=== PATIENT | male | born 1975 | race Caucasian/White ===

== ENCOUNTER 2017-07-21 23:02 | Emergency (ER) | payer MEDICAID ==
--- NOTE | 2017-07-21 23:29 | Emergency Department Record ---
History of Present Illness - General Chief Complaint: Neck Injury/Pain Stated Complaint: NECK INJURY Time Seen by Provider: 07/21/17 23:17 Source: Patient, Family Mode of Arrival: Ambulatory Limitations: No limitations - History of Present Illness Initial Comments: 41 yo male presents after injuring his neck at 2pm today. He states he did a back flip from standing and landed on his head and neck. He was initially dazed for a few minutes. He states he could not move his arms and legs initially. Gradually the movement and sensation in the legs returned. He states the numbness, weakness and pain in his right arm remains. No confusion. No AMS. He states he remained home since 2pm because the symptoms were getting better. The right arm remaining weak with altered feeling and mild altered sensation of the left arm concerned him. No prior neck surgery. He reports he has a herniated disc from age 22 from [place]. Complaint: Neck injury -: Hour(s) (9) Place: Home Radiation: Left upper extremity, Right upper extremity Severity: Moderate Quality: Aching Consistency: Constant Improves With: None Worsens With: Movement of extremity, Movement of neck Context: Other (Doing a back flip) Associated Symptoms: Difficulty swallowing, Numbness, Weakness Treatments Prior to Arrival: None - Related Data Home Medications Medication Instructions Recorded Confirmed Last Taken No Home Med [NO HOME MEDS] 07/21/17 07/21/17 Unknown Allergies Allergy/AdvReac Type Severity Reaction Status Date / Time No Known Drug Allergies Allergy Verified 07/21/17 23:17 Review of Systems Constitutional: Denies: Chills, Fever, Malaise, Weakness Eyes: Denies: Eye discharge ENT: Denies: Congestion, Throat pain Respiratory: Denies: Cough Cardiovascular: Denies: Chest pain, Syncope Endocrine: Denies: Fatigue Gastrointestinal: Denies: Abdominal pain, Diarrhea, Nausea, Vomiting Genitourinary: Denies: Dysuria, Frequency Musculoskeletal: Reports: Arthralgia, Myalgia Skin: Denies: Bruising, Change in color, Rash Neurological: Reports: Headache, Numbness, Tingling, Weakness. Denies: Abnormal gait, Confusion, Tremors, Vertigo Psychiatric: Denies: Anxiety Hematological/Lymphatic: Denies: Easy bleeding, Easy bruising, Swollen glands Physical Exam - General General Appearance: Alert, Oriented x3, Cooperative, No acute distress Limitations: No limitations - Head Head exam: Atraumatic, Normocephalic, Normal inspection - Eye Eye exam: Normal appearance, PERRL. negative: Conjunctival injection, Scleral icterus - ENT ENT exam: Normal exam, Mucous membranes moist Ear exam: Normal external inspection Nasal Exam: Normal inspection Mouth exam: Normal external inspection - Neck Neck exam: Normal inspection, Tenderness. negative: Full ROM - Respiratory Respiratory exam: Normal lung sounds bilaterally. negative: Respiratory distress - Cardiovascular Cardiovascular Exam: Regular rate, Normal rhythm, Normal heart sounds Peripheral Pulses: 2+: Radial (R), Radial (L) - GI/Abdominal GI/Abdominal exam: Soft - Rectal Rectal exam: Deferred - exam: Deferred - Extremities Extremities exam: Normal inspection, Normal capillary refill. negative: Full ROM Image of Full Body: 1 - The patient can lift the arm off the bed approximately 30 degrees, he states it limits due to weakness more that pain, Jewel Hole Driller is 4/5, Biceps 3/5, subjective sensation decreased but present 2 - fixed income trading vice president 5/5, biceps 5/5, tricpes 5/5, sensation intact 3 - sensation intact, patellar reflexes intact =2, gross motor strenght intact , no foot drop, dorsi flexion and plantar flexion intact bilaterally - Back Back exam: Reports: Normal inspection, Full ROM - Neurological Neurological exam: Alert, CN II-XII intact, Motor sensory deficit (see above image with upper and lower extremity examination), Oriented X3. negative: Abnormal gait - Psychiatric Psychiatric exam: Normal affect, Normal mood - Skin Skin exam: Dry, Intact, Normal color, Warm Course Vital Signs 07/21/17 23:12 Temperature 97.9 F Pulse Rate [ 75 Pulse Ox Probe] Respiratory 16 Rate Blood Pressure 135/69 [Left Arm] Pulse Ox 99 - Reevaluation(s) Reevaluation #1: 07/21/17 23:35 C-collar placed and CT scans ordered 07/22/17 00:[address] of the cervical spine was negative for acute injury. Degenerative changes throughout the spine most noted at C5/6 I recommend transfer to [facility] for evaluation for MRI given the right arm is still weak with altered sensation as well as the other resolved symptoms [facility] was called I strongly recommend transfer tonight. The patient agrees. He refused EMS He is stable for private car in a collar I SANJAY Nayak of the ED He accepts the patient for transfer 07/22/17 00:53 The questions were answered The patient understands the need for collar until evaluation at [facility] He was given a copy of the CT Disposition Disposition: Transfer Clinical Impression: Cervical radiculopathy Disposition: Acute Care Hospital Transfer Transfer To: [facility] Reason For Transfer: RUE weakness, MRI Accepting Physician: Malini Time Discussed w/Accepting Physician: 00:50 Condition: (2) Stable Additional Instructions: Go directly to the [facility] ED for evaluation Keep the collar on until evaluated Do not take the collar off as this could cause further injury Forms: Patient Portal Access Time of Disposition: 00:50 Quality - Quality Measures Quality Measures: N/A - Blood Pressure Screening Does Patient Have Any of the Following: No Blood Pressure Classification: Pre-Hypertensive BP Reading Systolic Measurement: 135 Diastolic Measurement: 69 Screening for High Blood Pressure: < Pre-Hypertensive BP, F/U Documented > [ G8950] Pre-Hypertensive Follow-up Interventions: Referral to alternative/primary care provider.
--- NOTE | 2017-07-23 08:32 | CT SCAN REPORT ---
EXAM: CT SCAN OF THE BRAIN WITHOUT CONTRAST HISTORY: INJURED THE HEAD AND NECK DURING A BACK FLIP. RIGHT ARM WEAKNESS. TECHNIQUE: Standard CT imaging of the brain was performed without contrast. Comparison: None. Encounter: Initial. FINDINGS: The ventricles and cortical sulci are normal. There is a prominent cisterna magna. There is no mass, mass effect, intracranial hemorrhage, or visible acute infarct. The skull is intact. The orbits, sinuses, and mastoids are normal. IMPRESSION: NO ACUTE INTRACRANIAL ABNORMALITY. JOB NUMBER: [id number] [facility]
--- NOTE | 2017-07-23 08:56 | CT SCAN REPORT ---
EXAM: CT SCAN OF THE CERVICAL SPINE WITHOUT CONTRAST HISTORY: PATIENT INJURED THE NECK WHILE PERFORMING A BACK FLIP. LOWER NECK PAIN WITH RIGHT ARM NUMBNESS. TECHNIQUE: Standard CT imaging of the cervical spine was performed in the axial plane without contrast. Additional coronal and sagittal reformatted images were also performed. Comparison: None. FINDINGS: There is mild straightening of the cervical lordosis. There is no acute fracture, subluxation, or prevertebral soft tissue swelling. Mild disk space narrowing and end plate degenerative changes are present at the C5-C6 level. Very slight end plate degenerative changes are also noted at the C4-C5 and C6-C7 levels. There is disk bulging and posterior spurring at the C5-C6 level resulting in mild central canal stenosis with the AP dimension of the thecal sac measuring 8 mm. There is severe left and moderate to severe right neural foraminal narrowing. Minor disk bulging is present at the C4-C5 and C6 -C7 levels. IMPRESSION: 1. NO ACUTE CERVICAL SPINE PATHOLOGY. 2. DEGENERATIVE DISK DISEASE AT THE C5-C6 LEVEL RESULTING IN MILD CENTRAL CANAL STENOSIS. THERE IS ALSO SEVERE LEFT AND MODERATE TO SEVERE RIGHT NEURAL FORAMINAL NARROWING AT THIS LEVEL. JOB NUMBER: [id number] [facility]
== END 2017-07-22 01:05 | disposition short-term general hospital (02) ==
LOC: ER 23:02
DX: M54.12 Radiculopathy, cervical region (principal); R13.10 Dysphagia, unspecified; R29.898 Other symptoms and signs involving the musculoskeletal system; R20.0 Anesthesia of skin; X50.0XXA Overexertion from strenuous movement or load, initial encounter; Y93.43 Activity, gymnastics; Y92.009 Unspecified place in unspecified non-institutional (private) residence as the place of occurrence of the external cause
CPT/HCPCS: 70450; 72125; 99285

== ENCOUNTER 2018-04-11 20:31 | Emergency (ER) | payer MEDICAID ==
[2018-04-11] MEDS ORDERED: PROPARACAINE HCL OPTH 15ML BTL OPTH ONE (20:33)
[2018-04-11] MEDS ORDERED: GENTAMICIN SULFATE 0.3% OPTH 5 ML BTL OPTH ONE (22:00)
--- NOTE | 2018-04-11 22:06 | Emergency Department Record ---
History of Present Illness - General Chief complaint: Eye Problem Stated complaint: SOMETHING IN RT EYE Time Seen by Provider: 04/11/18 20:44 Source: Patient Mode of Arrival: Ambulatory Limitations: No limitations - History of Present Illness Initial comments: pt was operating a coil gun when a radha flew off and hit him in the right eye. chief complaint: Eye pain, Eye injury, Foreign body Onset/Timin -: Hour(s) Location: Right eye Place: Home If Injury: None Eye Symptoms: Foreign body sensation If Pain, Quality: Aching Consistency: Constant Associated Symptoms: None Treatments Prior to Arrival: None - Related Data Visual acuity (L) = 20/: 70 Visual acuity (R) = 20/: 70 With correction: No Patient Tetanus UTD (within 5 yrs): No Allergies Allergy/AdvReac Type Severity Reaction Status Date / Time No Known Drug Allergies Allergy Verified 07/21/17 23:17 Travel Screening - Travel/Exposure Within Last 30 Days Have you traveled within the last 30 days?: No Review of Systems Reviewed: No additional complaints except as noted below Constitutional: Reports: As per HPI. Denies: Chills, Fever, Malaise, Night sweats, Weakness, Weight change Eyes: Reports: As per HPI. Denies: Eye discharge, Eye pain, Photophobia, Vision change ENT: Reports: As per HPI. Denies: Congestion, Dental pain, Ear pain, Epistaxis , Hearing loss, Throat pain Respiratory: Reports: As per HPI. Denies: Cough, Dyspnea, Hemoptysis, Stridor, Wheezes Cardiovascular: Reports: As per HPI. Denies: Arrhythmia, Chest pain, Dyspnea on exertion, Edema, Murmurs, Orthopnea, Palpitations, Paroxysmal nocturnal dyspnea, Rheumatic Fever, Syncope Endocrine: Reports: As per HPI. Denies: Fatigue, Heat or cold intolerance, Polydipsia, Polyuria Gastrointestinal: Reports: As per HPI. Denies: Abdominal pain, Constipation, Diarrhea, Hematemesis, Hematochezia, Melena, Nausea, Vomiting Genitourinary: Reports: As per HPI. Denies: Dysuria, Frequency, Hematuria, Incontinence, Retention, Testicular pain, Testicular mass, Urgency Musculoskeletal: Reports: As per HPI. Denies: Arthralgia, Back pain, Gout, Joint swelling, Myalgia, Neck pain Skin: Reports: As per HPI. Denies: Bruising, Change in color, Change in hair/ nails, Lesions, Pruritus, Rash Neurological: Reports: As per HPI. Denies: Abnormal gait, Confusion, Headache, Numbness, Paresthesias, Seizure, Tingling, Tremors, Vertigo, Weakness Psychiatric: Reports: As per HPI. Denies: Anxiety, Auditory hallucinations, Depression, Homicidal thoughts, Suicidal thoughts, Visual hallucinations Hematological/Lymphatic: Reports: As per HPI. Denies: Anemia, Blood Clots, Easy bleeding, Easy bruising, Swollen glands Past Medical History - SOCIAL HISTORY Smoking Status: Never smoker Alcohol Use: None Drug Use: None - RESPIRATORY Hx Respiratory Disorders: No - CARDIOVASCULAR Hx Cardio Disorders: No - NEURO Hx Neuro Disorders: No - GI Hx GI Disorders: No - Hx Genitourinary Disorders: Yes Hx Kidney Stones: Yes - ENDOCRINE Hx Endocrine Disorders: No - MUSCULOSKELETAL Hx Musculoskeletal Disorders: No - PSYCH Hx Psych Problems: No - HEMATOLOGY/ONCOLOGY Hx Hematology/Oncology Disorders: No Family Medical History Any Significant Family History?: Yes Hx Diabetes: Grandparents Hx Heart Disease: Grandparents Physical Exam - General General Appearance: Alert, Oriented x3, Cooperative, No acute distress - Head Head exam: Normal inspection - Eye Eye exam: Normal appearance, PERRL, Conjunctival injection, EOMI Pupils: Normal accommodation With correction: No Image of Eyes: 1 - corneal abrasion. flourescien uptake - ENT ENT exam: Normal exam, Mucous membranes moist, Normal external ear exam, Normal orophraynx Ear exam: Normal external inspection. negative: External canal tenderness Nasal Exam: Normal inspection. negative: Discharge, Sinus tenderness Mouth exam: Normal external inspection, Tongue normal Teeth exam: Normal inspection. negative: Dental caries Throat exam: Normal inspection. negative: Tonsillar erythema, Tonsillar exudate - Neck Neck exam: Normal inspection, Full ROM. negative: Tenderness - Respiratory Respiratory exam: Normal lung sounds bilaterally. negative: Respiratory distress - Cardiovascular Cardiovascular Exam: Regular rate, Normal rhythm, Normal heart sounds - GI/Abdominal GI/Abdominal exam: Soft, Normal bowel sounds. negative: Tenderness - Rectal Rectal exam: Deferred - exam: Deferred - Extremities Extremities exam: Normal inspection, Full ROM, Normal capillary refill. negative: Tenderness - Back Back exam: Reports: Normal inspection, Full ROM. Denies: Muscle spasm, Rash noted, Tenderness - Neurological Neurological exam: Alert, CN II-XII intact, Normal gait, Oriented X3 - Psychiatric Psychiatric exam: Normal affect, Normal mood - Skin Skin exam: Dry, Intact, Normal color, Warm Course Vital Signs 04/11/18 20:37 Temperature 97.7 F Pulse Rate [ 81 Pulse Ox Probe] Respiratory 20 Rate Blood Pressure 149/70 [Left Arm] Pulse Ox 97 - Reevaluation(s) Reevaluation #1: 04/11/18 22:04 ct neg for fb. pos for acute on chronic sinusitis. pt states he is just getting over a cold Disposition Disposition: Discharge Clinical Impression: Corneal abrasion Qualifiers: Encounter type: initial encounter Laterality: right Qualified Code(s): S05.01XA - Injury of conjunctiva and corneal abrasion without foreign body, right eye, initial encounter Disposition: Home, Self-Care Condition: (1) Good Instructions: Corneal Abrasion (ED) Additional Instructions: follow up with family doctor and opthamologist. gentamicin 2 drops 4 times a day for 5 days. return sooner if worse Quality - Quality Measures Quality Measures: N/A - Blood Pressure Screening Does Patient Have Any of the Following: No Blood Pressure Classification: Hypertensive Reading Systolic Measurement: 149 Diastolic Measurement: 70 Screening for High Blood Pressure: < First Hypertensive BP, F/U Documented > [ G8950] First Hypertensive Follow-up Interventions: Follow-up with rescreen GT 1 day and LT 4 weeks.
--- NOTE | 2018-04-13 22:44 | CT SCAN REPORT ---
EXAM: CT SCAN ORBITS/FOSSA/SELLA WO CONT HISTORY: RIGHT EYE PAIN, INJURY, CONCERN FOR FOREIGN BODY. TECHNIQUE: CT of the orbits without contrast. FINDINGS: Orbital rims appear intact. Globes are intact and symmetric. Symmetric appearance of the optic nerves and extraocular muscles. Retrobulbar fat is clear bilaterally. No radiopaque foreign bodies are identified within the orbits. A small locule of gas is noted along the superficial anterior surface of the left globe, most likely trapped below the eyelid. Chronic-appearing deformities of the anterior nasal bones. Rightward nasal septal deviation. Bilateral maxillary sinus mucosal thickening and layering sinus fluid. Partial opacification of bilateral ethmoid air cells. IMPRESSION: 1. NO EVIDENCE OF INTRAORBITAL RADIOPAQUE FOREIGN BODY OR TRAUMATIC ORBITAL INJURY. 2. ACUTE ON CHRONIC SINUS DISEASE INVOLVING THE BILATERAL MAXILLARY SINUSES AND ETHMOID AIR CELLS. JOB NUMBER: [id number] [facility]
== END 2018-04-11 22:18 | disposition home or self-care (01) ==
LOC: ER 20:31
DX: S05.01XA Injury of conjunctiva and corneal abrasion without foreign body, right eye, initial encounter (principal); W22.8XXA Striking against or struck by other objects, initial encounter; Y92.009 Unspecified place in unspecified non-institutional (private) residence as the place of occurrence of the external cause
CPT/HCPCS: 70480; 99283

== ENCOUNTER 2018-05-25 05:03 | Emergency (ER) | payer MEDICAID ==
--- NOTE | 2018-05-25 05:22 | Emergency Department Record ---
History of Present Illness - General Chief Complaint: Cough Stated Complaint: COUGHING UP BLOOD Time Seen by Provider: 05/25/18 05:14 Source: Patient Mode of Arrival: Ambulatory Limitations: No limitations - History of Present Illness Initial Comments: The patient is here due to a cough with sputum for 3 weeks. For the last few days he has also been coughing up blood. The patient denies any CP, SOB, fever, chills, or back pain. He does have a hx of heavy tobacco use. MD Complaint: Cough, Fever Onset/Timin -: Week(s) - Related Data Previous Rx's Medication Instructions Recorded Albuterol Sulfate [Proair Hfa] 2 puff IH QID PRN #1 inhaler 05/25/18 Benzonatate [Tessalon] 1 cap PO Q8H PRN #15 cap 05/25/18 Doxycycline Monohydrate [Mondoxyne 100 mg PO BID 7 Days #14 capsule 05/25/18 Nl] Allergies Allergy/AdvReac Type Severity Reaction Status Date / Time No Known Drug Allergies Allergy Verified 07/21/17 23:17 Travel Screening - Travel/Exposure Within Last 30 Days Have you traveled within the last 30 days?: No Review of Systems Constitutional: Denies: Chills, Fever Eyes: Denies: Eye discharge ENT: Denies: Congestion Respiratory: Reports: Cough. Denies: Dyspnea Past Medical History - SOCIAL HISTORY Smoking Status: Current every day smoker Alcohol Use: None Drug Use: None - RESPIRATORY Hx Respiratory Disorders: No - CARDIOVASCULAR Hx Cardio Disorders: No - NEURO Hx Neuro Disorders: No - GI Hx GI Disorders: No - Hx Genitourinary Disorders: Yes Hx Kidney Stones: Yes - ENDOCRINE Hx Endocrine Disorders: No - MUSCULOSKELETAL Hx Musculoskeletal Disorders: No - PSYCH Hx Psych Problems: No - HEMATOLOGY/ONCOLOGY Hx Hematology/Oncology Disorders: No Family Medical History Any Significant Family History?: Yes Hx Diabetes: Grandparents Hx Heart Disease: Grandparents Physical Exam - General General Appearance: Alert, Oriented x3, Cooperative, No acute distress - Head Head exam: Atraumatic, Normocephalic, Normal inspection - Eye Eye exam: Normal appearance, PERRL, EOMI - ENT Throat exam: Normal inspection. negative: Tonsillar erythema, Tonsillar exudate - Neck Neck exam: Normal inspection, Full ROM. negative: Tenderness - Respiratory Respiratory exam: Decreased breath sounds (at the bases with mild wheezing.). negative: Normal lung sounds bilaterally, Rales, Respiratory distress, Rhonchi, Stridor - Cardiovascular Cardiovascular Exam: Regular rate, Normal rhythm, Normal heart sounds - GI/Abdominal GI/Abdominal exam: Soft, Normal bowel sounds. negative: Tenderness - Extremities Extremities exam: Normal inspection, Full ROM, Normal capillary refill. negative: Tenderness - Neurological Neurological exam: Alert. negative: Motor sensory deficit Course Vital Signs 05/25/18 05:08 Temperature 97.8 F Pulse Rate [ 65 Pulse Ox Probe] Respiratory 20 Rate Blood Pressure 122/76 [Left Arm] Pulse Ox 97 - Reevaluation(s) Reevaluation #1: The patient is doing very well at this time. I did explain the neg xray and the need for an oral Abx and inhaller. He is to F/U with a PCP if not better in 3-5 days. 05/25/18 05:43 Medical Decision Making - Data Complexity MDM Data: X-Ray Ordered and/or Reviewed - Radiology Data Radiology results: Report reviewed (CXR: Neg.) Disposition Disposition: Discharge Clinical Impression: Bronchitis Disposition: Home, Self-Care Condition: (2) Stable Instructions: Acute Bronchitis (ED) Additional Instructions: Please take the Doxycycline and Albuterol with Tessalon for the cough. Please see your family doctor if not better in 3-5 days and return to the ER for any worsening symptoms. Prescriptions: Albuterol Sulfate [Proair Hfa] 2 puff IH QID PRN #1 inhaler PRN Reason: Cough And Difficulty Breathing Benzonatate [Tessalon] 1 cap PO Q8H PRN #15 cap PRN Reason: Cough Doxycycline Monohydrate [Mondoxyne Nl] 100 mg PO BID 7 Days #14 capsule Forms: Patient Portal Access Time of Disposition: 05:46 Quality - Quality Measures Quality Measures: N/A - Blood Pressure Screening View Details: Yes Does Patient Have Any of the Following: No Blood Pressure Classification: Pre-Hypertensive BP Reading Systolic Measurement: 122 Diastolic Measurement: 76 Screening for High Blood Pressure: < Pre-Hypertensive BP, F/U Documented > [ G8950] Pre-Hypertensive Follow-up Interventions: Referral to alternative/primary care provider.
--- NOTE | 2018-05-28 11:22 | RADIOLOGY REPORT ---
EXAM: CHEST, TWO VIEWS HISTORY: COUGH. TECHNIQUE: Two views of the chest were obtained. Comparison: None. FINDINGS: The heart is not enlarged. The lungs and pleural spaces are clear. IMPRESSION: NO ACUTE CARDIOPULMONARY ABNORMALITY. JOB NUMBER: [id number] [facility]
== END 2018-05-25 06:03 | disposition home or self-care (01) ==
LOC: ER 05:03
DX: J20.9 Acute bronchitis, unspecified (principal); F17.210 Nicotine dependence, cigarettes, uncomplicated
CPT/HCPCS: 71046; 99283